=== PATIENT | female | born 1955 | race Caucasian/White ===

== ENCOUNTER 2022-09-25 12:22 | Inpatient (IN) | payer MEDICARE, SELFPAY ==
[2022-09-25] MEDS ORDERED: Nitroglycerin 2% Ointment 1 INCH/1 GM Packet ONE (13:00)
[2022-09-25 13:01] LABS: #Lymphocytes 0.9 thou/uL (1.20-3.40); #Neutrophils 14.1 thou/uL (1.40-6.50); %Basophils 0.1 % (0.0-1.0); %Lymphocytes 5.8 % (21.0-51.0); %Neutrophils 88.1 % (42.0-75.0); Hemoglobin 11.9 g/dL (12.0-16.0); Mean Corpuscular HGB CONC 31.9 g/dL (32.0-36.0); Mean Corpuscular Hemoglobin 31.6 pg (27.0-31.0); Mean Platelet Volume 8.7 fL (7.4-10.4); Platelet Count 212 10x3/uL (130-400); RBC Distribution Width 12.6 % (11.5-14.5); Red Blood Cell (RBC) Count 3.77 mill/uL (4.20-5.40)
[2022-09-25] MEDS ORDERED: Fentanyl 100 MCG/2 ML VIAL ONE (13:13)
[2022-09-25] MEDS ORDERED: Ondansetron PF 4 MG/2 ML Vial ONE (13:13)
[2022-09-25] MEDS ORDERED: Nitroglycerin 100MG/250ML BOT 250 ML ONE (13:28)
[2022-09-25] MEDS ORDERED: Lidocaine 1% (PF) 30 ML VIAL ONE (13:28)
[2022-09-25] MEDS ORDERED: Heparin 10,000 UNITS/ 10 ML VIAL ONE (13:28)
[2022-09-25] MEDS ORDERED: Verapamil 5 MG/2 ML VIAL ONE (13:31)
[2022-09-25 13:37] LABS: ALT (SGPT) 53 U/L (8-55); AST (SGOT) 332 U/L (5-34); Albumin 4.2 g/dL (3.4-4.8); Alkaline Phosphatase 66 U/L (40-110); Anion Gap 19 mmol/L (10-20); BUN (Urea Nitrogen) 24 mg/dL (9.8-20.1); Bilirubin, Total 0.6 mg/dL (0.2-1.2); CK (CPK) 3343 U/L (29-168); Calc. Creatinine Clearance 0 mL/min (70-130); Carbon Dioxide 18 mmol/L (23-31); Chloride 106 mmol/L (98-107); Estimated GFR 66; Globulin 2.9 g/dL (2.4-3.5); Glucose 145 mg/dL (80-115); Lipase 15 U/L (8-78); Potassium 4.4 mmol/L (3.5-5.1); Protein, Total 7.1 g/dL (5.8-8.1); Sodium 139 mmol/L (136-145)
[2022-09-25 13:52] LABS: Calcium 9.6 mg/dL (7.8-10.44)
[2022-09-25] MEDS ORDERED: Lidocaine 1% PF 5 ML VIAL ONE (14:06)
[2022-09-25] MEDS ORDERED: Atropine Sulfate 1 mg/10 ml Syringe ONE (14:06)
[2022-09-25 14:22] LABS: CKMB 290.4 ng/mL (0-6.6)
[2022-09-25] MEDS ORDERED: Morphine 4 MG/ML VIAL ONE (14:39)
[2022-09-25] MEDS ORDERED: Aggrastat 12.5 MG/250 ML 250 ML ONE (14:49)
[2022-09-25] MEDS ORDERED: Milk Of Magnesia 30 ML UDCUP PO PRN (15:12)
[2022-09-25] MEDS ORDERED: Nitroglycerin 0.4 MG TAB (25 Tab Bottle) SL PRN (15:12)
[2022-09-25] MEDS ORDERED: Mag-Al 1200 mg/1200 mg/30 ML UDCUP PO PRN (15:12)
[2022-09-25] MEDS ORDERED: Zolpidem Tartrate 5 MG TAB PO PRN (15:12)
[2022-09-25] MEDS ORDERED: Clopidogrel Bisulfate 300 MG TAB PO SCH (15:15)
[2022-09-25] MEDS ORDERED: Aspirin 325 mg Enteric Coated Tablet PO SCH (15:15)
[2022-09-25] MEDS ORDERED: Heparin 10,000 UNITS/ 10 ML VIAL SLOW IVP SCH (15:15)
[2022-09-25 15:51] VITALS: BMI 23.8
[2022-09-25] MEDS ORDERED: Morphine 2 MG/ML VIAL ONE (15:52)
[2022-09-25 15:59] LABS: Platelet Count 235 10x3/uL (130-400)
[2022-09-25 16:06] LABS: SARS-CoV-2 NAA Rapid Test Not Detected (NotDetected)
[2022-09-25] MEDS ORDERED: Iopamidol 370 76% 100 ML VIAL ONE (16:07)
[2022-09-25 16:11] LABS: INR-International Normal Ratio 1.2; Prothrombin Time 15.4 sec (12.0-14.7)
[2022-09-25 16:30] LABS: PTT Greater than 250.0 sec (22.9-36.1)
[2022-09-25 16:48] LABS: Troponin I 95.575 ng/mL (< 0.028)
[2022-09-25] MEDS: Morphine 2 MG/ML VIAL SLOW IVP PRN ×3 (16:51→21:12)
[2022-09-25] MEDS: Aggrastat 12.5 MG/250 ML 250 ML IVPB SCH (17:33)
[2022-09-25] MEDS: Atorvastatin Calcium 40 MG TAB PO SCH (21:59)
[2022-09-25] MEDS: Metoprolol Tartrate 25 MG TAB PO SCH (22:01)
[2022-09-26] MEDS: Acetaminophen 325 MG TAB PO PRN (00:22)
[2022-09-26 04:46] LABS: ALT (SGPT) 55 U/L (8-55); AST (SGOT) 285 U/L (5-34); Albumin 3.8 g/dL (3.4-4.8); Alkaline Phosphatase 59 U/L (40-110); Anion Gap 13 mmol/L (10-20); BUN (Urea Nitrogen) 24 mg/dL (9.8-20.1); Bilirubin, Total 0.7 mg/dL (0.2-1.2); Calc. Creatinine Clearance 58 mL/min (70-130); Calcium 9.2 mg/dL (7.8-10.44); Carbon Dioxide 23 mmol/L (23-31); Cardiac Risk 4.3 (Less than 4.5); Chloride 102 mmol/L (98-107); Cholesterol 215 mg/dl (< 200 Desired); Estimated GFR 72; Glucose 132 mg/dL (80-115); HDL Cholesterol 50 mg/dL (>60 Neg Risk); LDL Cholesterol, Calculated 143 mg/dL; Potassium 4.2 mmol/L (3.5-5.1); Protein, Total 6.8 g/dL (5.8-8.1); Sodium 134 mmol/L (136-145); Triglycerides 108 mg/dL (Less than 150)
[2022-09-26 04:59] LABS: Band 6 % (5-11); Hemoglobin 10.8 g/dL (12.0-16.0); Hypochromia SLIGHT = 6-15 cells (100X) (0-5/hpf); Lymphocytes 20 % (21-51); MDiff Complete? YES; Mean Corpuscular HGB CONC 32.3 g/dL (32.0-36.0); Mean Corpuscular Hemoglobin 31.9 pg (27.0-31.0); Mean Corpuscular Volume 98.9 fl (78.0-98.0); Mean Platelet Volume 8.6 fL (7.4-10.4); Monocytes 16 % (0-10); Neutrophil 58 % (42-75); Platelet Count 207 10x3/uL (130-400); Platelet Morphology Comment Appears Adequate; RBC Distribution Width 12.7 % (11.5-14.5); Red Blood Cell (RBC) Count 3.38 mill/uL (4.20-5.40); White Blood Cell (WBC) Count 14.6 10x3/uL (4.8-10.8)
[2022-09-26] MEDS: Lisinopril 2.5 MG TAB PO SCH (08:42)
[2022-09-26] MEDS: Acetaminophen/Codeine 30-300mg Tablet PO PRN ×3 (08:42→21:15)
[2022-09-26] MEDS: Clopidogrel Bisulfate 75 MG TAB PO SCH (08:43)
[2022-09-26] MEDS ORDERED: FLU VACC QS2022-23(65YR UP)/PF 240 MCG/0.7 ML SYRINGE IM ONE (09:00)
[2022-09-26] MEDS: Aggrastat 12.5 MG/250 ML 250 ML IVPB SCH (09:51)
[2022-09-26] MEDS: Metoprolol Tartrate 25 MG TAB PO SCH ×2 (13:56→21:19)
[2022-09-26] MEDS: Atorvastatin Calcium 40 MG TAB PO SCH (21:18)
[2022-09-27] MEDS: Clopidogrel Bisulfate 75 MG TAB PO SCH (09:58)
[2022-09-27] MEDS: Metoprolol Tartrate 25 MG TAB PO SCH ×2 (09:58→20:10)
[2022-09-27] MEDS: Lisinopril 2.5 MG TAB PO SCH ×3 (10:11→12:35)
[2022-09-27] MEDS: Sertraline 100 MG TAB PO SCH (18:27)
[2022-09-27] MEDS ORDERED: Sertraline 100 MG TAB PO SCH (19:00)
[2022-09-27] MEDS: Atorvastatin Calcium 40 MG TAB PO SCH (20:06)
[2022-09-28] MEDS: Clopidogrel Bisulfate 75 MG TAB PO SCH (09:00)
[2022-09-28] MEDS: Lisinopril 2.5 MG TAB PO SCH (09:03)
[2022-09-28] MEDS: Metoprolol Tartrate 25 MG TAB PO SCH (09:03)
[2022-09-28] MEDS: Acetaminophen 325 MG TAB PO PRN (11:11)
[2022-09-28] MEDS ORDERED: Bisacodyl 5 MG TAB PO PRN (14:00)
[2022-09-28] MEDS: Sertraline 100 MG TAB PO SCH (20:56)
[2022-09-28] MEDS: Atorvastatin Calcium 40 MG TAB PO SCH (20:56)
[2022-09-29] MEDS: Clopidogrel Bisulfate 75 MG TAB PO SCH (09:14)
[2022-09-29] MEDS: Acetaminophen 325 MG TAB PO PRN (13:34)
[2022-09-29 16:20] LABS: Hemoglobin 9.3 g/dL (12.0-16.0); Platelet Count 202 10x3/uL (130-400)
[2022-09-29] MEDS ORDERED: Aspirin 81 mg Enteric Coated Tablet PO SCH ×2 (19:15)
[2022-09-29] MEDS: Atorvastatin Calcium 40 MG TAB PO SCH (21:06)
[2022-09-29] MEDS: Sertraline 100 MG TAB PO SCH (21:07)
[2022-09-30 04:19] LABS: Hemoglobin 9.5 g/dL (12.0-16.0); Mean Corpuscular HGB CONC 34.4 g/dL (32.0-36.0); Mean Corpuscular Hemoglobin 33.4 pg (27.0-31.0); Mean Corpuscular Volume 97.4 fl (78.0-98.0); Mean Platelet Volume 9.4 fL (7.4-10.4); Platelet Count 209 10x3/uL (130-400); RBC Distribution Width 12.4 % (11.5-14.5); Red Blood Cell (RBC) Count 2.85 mill/uL (4.20-5.40); White Blood Cell (WBC) Count 5.9 10x3/uL (4.8-10.8)
[2022-09-30 04:39] LABS: Anion Gap 13 mmol/L (10-20); BUN (Urea Nitrogen) 14 mg/dL (9.8-20.1); Calc. Creatinine Clearance 65 mL/min (70-130); Calcium 8.7 mg/dL (7.8-10.44); Carbon Dioxide 21 mmol/L (23-31); Chloride 104 mmol/L (98-107); Estimated GFR 78; Glucose 92 mg/dL (80-115); Potassium 3.2 mmol/L (3.5-5.1); Sodium 135 mmol/L (136-145)
[2022-09-30] MEDS: Aspirin 81 mg Enteric Coated Tablet PO SCH (09:13)
[2022-09-30] MEDS: Clopidogrel Bisulfate 75 MG TAB PO SCH (09:13)
[2022-09-30] MEDS: Atorvastatin Calcium 40 MG TAB PO SCH (22:25)
[2022-09-30] MEDS: Sertraline 100 MG TAB PO SCH (22:26)
[2022-10-01] MEDS: Clopidogrel Bisulfate 75 MG TAB PO SCH (10:15)
[2022-10-01] MEDS: Aspirin 81 mg Enteric Coated Tablet PO SCH (10:15)
[2022-10-01 14:45] LABS: Anion Gap 12 mmol/L (10-20); BUN (Urea Nitrogen) 12 mg/dL (9.8-20.1); Calc. Creatinine Clearance 65 mL/min (70-130); Calcium 8.6 mg/dL (7.8-10.44); Carbon Dioxide 22 mmol/L (23-31); Chloride 105 mmol/L (98-107); Estimated GFR 78; Glucose 113 mg/dL (80-115); Potassium 2.9 mmol/L (3.5-5.1); Sodium 136 mmol/L (136-145)
[2022-10-01] MEDS ORDERED: Potassium Chloride 20 MEQ TAB PO SCH (18:00)
[2022-10-01] MEDS: Atorvastatin Calcium 40 MG TAB PO SCH (20:49)
[2022-10-01] MEDS: Sertraline 100 MG TAB PO SCH (20:49)
[2022-10-02 05:05] LABS: Hemoglobin 10.7 g/dL (12.0-16.0); Mean Corpuscular HGB CONC 33.9 g/dL (32.0-36.0); Mean Corpuscular Hemoglobin 33.8 pg (27.0-31.0); Mean Corpuscular Volume 99.6 fl (78.0-98.0); Mean Platelet Volume 9.4 fL (7.4-10.4); Platelet Count 274 10x3/uL (130-400); RBC Distribution Width 12.7 % (11.5-14.5); Red Blood Cell (RBC) Count 3.16 mill/uL (4.20-5.40); White Blood Cell (WBC) Count 8.3 10x3/uL (4.8-10.8)
[2022-10-02 05:25] LABS: Anion Gap 14 mmol/L (10-20); BUN (Urea Nitrogen) 10 mg/dL (9.8-20.1); Calc. Creatinine Clearance 63 mL/min (70-130); Carbon Dioxide 22 mmol/L (23-31); Chloride 105 mmol/L (98-107); Estimated GFR 75; Glucose 96 mg/dL (80-115); Potassium 3.4 mmol/L (3.5-5.1); Sodium 138 mmol/L (136-145)
[2022-10-02] MEDS ORDERED: Potassium Chloride 20 MEQ TAB PO SCH (08:00)
[2022-10-02] MEDS: Clopidogrel Bisulfate 75 MG TAB PO SCH (09:21)
[2022-10-02] MEDS: Aspirin 81 mg Enteric Coated Tablet PO SCH (09:33)
[2022-10-02 11:52] VITALS: BP 103/54; TEMP 98.4
[2022-10-02] MEDS: Atorvastatin Calcium 40 MG TAB PO SCH (12:54)
== END 2022-10-02 13:00 | disposition home or self-care (01) | DRG 280 ==
LOC: ERS 12:22 → CCL 13:43 → CCU 13:44 → 2NO 09-30
PROVIDERS: ADMIT Internal Medicine Cardiovascular Disease; ATTEND Internal Medicine Cardiovascular Disease
PROC: 4A023N7 Measurement of Cardiac Sampling and Pressure, Left Heart, Percutaneous Approach (ICD-10-PCS; principal; 2022-09-25)
PROC: B2111ZZ Fluoroscopy of Multiple Coronary Arteries using Low Osmolar Contrast (ICD-10-PCS; 2022-09-25)
PROC: B2151ZZ Fluoroscopy of Left Heart using Low Osmolar Contrast (ICD-10-PCS; 2022-09-25)
DX: I21.09 ST elevation (STEMI) myocardial infarction involving other coronary artery of anterior wall (principal); J96.01 Acute respiratory failure with hypoxia; F32.A Depression, unspecified; F17.210 Nicotine dependence, cigarettes, uncomplicated; E78.00 Pure hypercholesterolemia, unspecified; E78.5 Hyperlipidemia, unspecified; I25.10 Atherosclerotic heart disease of native coronary artery without angina pectoris; I25.5 Ischemic cardiomyopathy; E87.6 Hypokalemia; I08.1 Rheumatic disorders of both mitral and tricuspid valves; Z20.822 Contact with and (suspected) exposure to COVID-19; Z90.49 Acquired absence of other specified parts of digestive tract; Z90.710 Acquired absence of both cervix and uterus; Z98.890 Other specified postprocedural states
CPT/HCPCS: 36415; 71045; 80048; 80053; 80061; 82553; 83690; 83880; 84484; 85014; 85018; 85025; 85027; 85049; 85347; 85610; 85730; 93005; 93010; 93306; 93458; 93798; 94760; 96374; 96375; C1769; C1887; C1894; J0461; J1644; J1650; J2001; J2270; J2272; J2405; J3010; J3246; Q9967; U0002